=== PATIENT | female | born 1950 | race Two or more races ===

== ENCOUNTER 2021-10-04 16:28 | Inpatient (IN) | payer MEDICAID, OTHER ==
[~2021-10-04] VITALS: Ht 167.6 cm; Wt 135.7 kg
[~2021-10-04 16:28] MED LIST: ALBU6.7H9 INH; ATOR-2 PO; BUME2TAB7 PO; EZET10TA13 PO; FURO-151 MT; GABA-532 MT; LOPHC2 MT; LOSA25TA26 MT; METF-416 MT; METO25TA6 MT; MOME13HF INH; MONT-39 MT; MONT10TA21 MT; OMEP20CA14 PO; RIVA20TA MT; SPIR25TA6 PO
[2021-10-04] MEDS ORDERED: ALBUTEROL (0.083%) 2.5MG/3ML NEB HHN STA ×2 (16:59→19:12)
[2021-10-04] MEDS ORDERED: IPRATROPIUM BROMIDE (0.02%) 0.5MG/2.5ML NEB HHN STA ×2 (16:59→19:12)
[2021-10-04] MEDS ORDERED: METHYLPREDNISOLONE SOD SUCC 125 MG/2 ML VIAL IV STA (16:59)
[2021-10-04] MEDS ORDERED: MAGNESIUM 2 G PREMIX 50 ML IV ONE (17:00)
[2021-10-04] MEDS ORDERED: ASPIRIN 81MG TABLET PO ONE (17:00)
[2021-10-04 17:44] LABS: EOSINOPHILS % 4.1 % (0.0-5.0); HEMATOCRIT. 33.4 % (36.0-48.0); HEMOGLOBIN. 10.2 g/dL (12.0-16.0); MEAN CORPUSCULAR HEMOGLOBIN 25.2 pg (28.0-32.0); MEAN CORPUSCULAR VOLUME 82.5 fL (81.0-99.0); MEAN PLATELET VOLUME 8.2 fl (7.4-10.4); MONOCYTES % 10.9 % (2.0-8.0); PLATELET 294 x1000/uL (130-400); RED BLOOD CELL COUNT 4.05 mill/uL (4.2-5.4); RED CELL DISTRIBUTION WIDTH 16.1 % (11.6-14.6)
[2021-10-04 17:47] LABS: CHLORIDE 98 mEq/L (98-107)
[2021-10-04 18:19] LABS: BG BASE EXCESS 8.1 mmol/L (-2.0-2.0); BG CARBOXYHEMOGLOBIN 0.5 % (0.5-1.5); BG DEOXYHEMOGLOBIN 0.7 % (0.0-5.0); BG FRACTION INSPIRED OXYGEN 60; BG HCO3 ACT 34.5 mmol/L (22.0-26.0); BG METHEMOGLOBIN 0.4 % (0.0-1.5); BG OXYGEN SATURATION 99.3 % (92.0-98.5); BG OXYHEMOGLOBIN 98.4 % (94.0-97.0); BG PCO2 58.2 mmHg (35.0-45.0); BG PH 7.391 (7.350-7.450); BG PO2 197.3 mmHg (75.0-100.0); BG SAMPLE SITE RIGHT RADIAL; BG TOTAL HEMOGLOBIN 10.9 g/dL (12.0-18.0); BG VENT MODE MASK - HHN
[2021-10-04] MEDS ORDERED: FUROSEMIDE 40MG/4ML VIAL IVP ONE (19:00)
[2021-10-04] MEDS ORDERED: CALCIUM GLUCONATE 1GM PREMIX 50 ML IV ONE (19:00)
[2021-10-04 20:16] LABS: BG BASE EXCESS 7.9 mmol/L (-2.0-2.0); BG CARBOXYHEMOGLOBIN 0.8 % (0.5-1.5); BG DEOXYHEMOGLOBIN 2.5 % (0.0-5.0); BG FRACTION INSPIRED OXYGEN 50; BG HCO3 ACT 34.2 mmol/L (22.0-26.0); BG METHEMOGLOBIN 0.3 % (0.0-1.5); BG OXYGEN SATURATION 97.5 % (92.0-98.5); BG OXYHEMOGLOBIN 96.4 % (94.0-97.0); BG PCO2 56.5 mmHg (35.0-45.0); BG PO2 100.5 mmHg (75.0-100.0); BG SAMPLE SITE LEFT RADIAL; BG TOTAL HEMOGLOBIN 11.4 g/dL (12.0-18.0); BG TOTAL RESPIRATORY RATE 23 b/min; BG VENT MODE MASK - BIPAP
[2021-10-05] VITALS (12 sets, daily range): BP systolic 111–146; BP diastolic 50–80
[2021-10-05] MEDS ORDERED: DEXTROSE 50% WATER 50ML SYRINGE IV PRN (02:00)
[2021-10-05] MEDS ORDERED: HYDRALAZINE 20MG/ML VIAL IV PRN (02:00)
[2021-10-05] MEDS ORDERED: ONDANSETRON HCL 4MG/2ML INJ IV PRN (02:00)
[2021-10-05] MEDS ORDERED: CLONIDINE 0.1MG TABLET PO PRN (02:00)
[2021-10-05] MEDS: GABAPENTIN 300MG CAPSULE PO SCH ×3 (06:31→21:03)
[2021-10-05] MEDS: BLOOD SUGAR DIAGNOSTIC STRIP TEST SCH ×4 (06:37→21:06)
[2021-10-05 07:18] LABS: BASOPHILS % 0.2 % (0.0-2.0); HEMATOCRIT. 33.2 % (36.0-48.0); HEMOGLOBIN. 10.3 g/dL (12.0-16.0); LYMPHOCYTES % 10.7 % (20.0-50.0); MEAN CORPUSCULAR HEMOGLOBIN 25.3 pg (28.0-32.0); MEAN PLATELET VOLUME 7.7 fl (7.4-10.4); MONOCYTES % 1.2 % (2.0-8.0); NEUTROPHILS % 87.9 % (40.0-76.0); PLATELET 273 x1000/uL (130-400); RED BLOOD CELL COUNT 4.05 mill/uL (4.2-5.4); RED CELL DISTRIBUTION WIDTH 15.7 % (11.6-14.6)
[2021-10-05 07:25] LABS: CHLORIDE 98 mEq/L (98-107)
[2021-10-05] MEDS: FUROSEMIDE 100MG/10ML VIAL IVP SCH ×2 (08:43→17:07)
[2021-10-05] MEDS: METOPROLOL TARTRATE 25MG TABLET PO SCH ×2 (08:43→21:00)
[2021-10-05] MEDS: EZETIMIBE 10MG TABLET PO SCH (08:43)
[2021-10-05] MEDS: OMEPRAZOLE 20MG CAPSULE EXTENDED RELEASE PO SCH (08:43)
[2021-10-05] MEDS: LOSARTAN POTASSIUM 25 MG TABLET PO SCH (08:43)
[2021-10-05] MEDS: METFORMIN HCL 500MG TABLET PO SCH ×2 (08:44→17:07)
[2021-10-05] MEDS: INSULIN LISPRO 100 UNITS/ML SUBCUT SCH ×4 (08:47→21:06)
[2021-10-05 08:48] LABS: BG BASE EXCESS 7.3 mmol/L (-2.0-2.0); BG CARBOXYHEMOGLOBIN 0.6 % (0.5-1.5); BG DEOXYHEMOGLOBIN 3.6 % (0.0-5.0); BG FRACTION INSPIRED OXYGEN 32; BG HCO3 ACT 35.1 mmol/L (22.0-26.0); BG METHEMOGLOBIN 0.4 % (0.0-1.5); BG OXYGEN SATURATION 96.4 % (92.0-98.5); BG OXYHEMOGLOBIN 95.4 % (94.0-97.0); BG PCO2 67.3 mmHg (35.0-45.0); BG PH 7.335 (7.350-7.450); BG SAMPLE SITE RIGHT RADIAL; BG TOTAL HEMOGLOBIN 11.4 g/dL (12.0-18.0); BG VENT MODE NASAL CANNULA
[2021-10-05] MEDS: SPIRONOLACTONE 25MG TABLET PO SCH (08:51)
[2021-10-05] MEDS ORDERED: BUMETANIDE 1MG TABLET PO SCH (09:00)
[2021-10-05] MEDS ORDERED: INSULIN GLARGINE 100 UNITS/ML SUBCUT SCH (09:00)
[2021-10-05] MEDS ORDERED: FUROSEMIDE 40MG/4 ML UDC PO SCH (09:00)
[2021-10-05] MEDS: IPRATROPIUM/ALBUTEROL 0.5-3(2.5)MG/3ML NEB HHN SCH ×3 (12:12→19:47)
[2021-10-05] MEDS: MONTELUKAST SODIUM 10MG TABLET PO SCH (17:07)
[2021-10-05] MEDS: RIVAROXABAN 20 MG TABLET PO SCH (17:07)
[2021-10-05] MEDS: ATORVASTATIN CALCIUM 40MG TABLET PO SCH (21:02)
[2021-10-06] VITALS (12 sets, daily range): BP systolic 95–131; BP diastolic 32–69
[2021-10-06] MEDS: IPRATROPIUM/ALBUTEROL 0.5-3(2.5)MG/3ML NEB HHN SCH ×4 (00:42→18:00)
[2021-10-06] MEDS: GABAPENTIN 300MG CAPSULE PO SCH ×3 (06:45→21:15)
[2021-10-06] MEDS: BLOOD SUGAR DIAGNOSTIC STRIP TEST SCH ×4 (06:49→21:17)
[2021-10-06 08:13] LABS: BASOPHILS % 0.7 % (0.0-2.0); EOSINOPHILS % 0.3 % (0.0-5.0); HEMATOCRIT. 34.4 % (36.0-48.0); HEMOGLOBIN. 10.4 g/dL (12.0-16.0); LYMPHOCYTES % 17.4 % (20.0-50.0); MEAN CORPUSCULAR HEMOGLOBIN 25.3 pg (28.0-32.0); MEAN CORPUSCULAR VOLUME 83.7 fL (81.0-99.0); MEAN PLATELET VOLUME 8.2 fl (7.4-10.4); MONOCYTES % 10.9 % (2.0-8.0); NEUTROPHILS % 70.7 % (40.0-76.0); PLATELET 283 x1000/uL (130-400); RED BLOOD CELL COUNT 4.11 mill/uL (4.2-5.4); RED CELL DISTRIBUTION WIDTH 16.1 % (11.6-14.6)
[2021-10-06] MEDS: METOPROLOL TARTRATE 25MG TABLET PO SCH ×2 (08:17→21:00)
[2021-10-06] MEDS: EZETIMIBE 10MG TABLET PO SCH (08:17)
[2021-10-06] MEDS: METFORMIN HCL 500MG TABLET PO SCH ×2 (08:18→17:33)
[2021-10-06] MEDS: OMEPRAZOLE 20MG CAPSULE EXTENDED RELEASE PO SCH (08:18)
[2021-10-06] MEDS: SPIRONOLACTONE 25MG TABLET PO SCH (08:18)
[2021-10-06] MEDS: LOSARTAN POTASSIUM 25 MG TABLET PO SCH (08:18)
[2021-10-06] MEDS: FUROSEMIDE 100MG/10ML VIAL IVP SCH ×2 (08:18→17:32)
[2021-10-06] MEDS: INSULIN LISPRO 100 UNITS/ML SUBCUT SCH ×4 (08:19→21:16)
[2021-10-06 08:34] LABS: CHLORIDE 95 mEq/L (98-107)
[2021-10-06] MEDS: INSULIN GLARGINE 100 UNITS/ML SUBCUT SCH ×2 (10:21→21:16)
[2021-10-06] MEDS: MONTELUKAST SODIUM 10MG TABLET PO SCH (17:33)
[2021-10-06] MEDS: RIVAROXABAN 20 MG TABLET PO SCH (17:33)
[2021-10-06] MEDS: ATORVASTATIN CALCIUM 40MG TABLET PO SCH (21:15)
[2021-10-06] MEDS: FAMOTIDINE 20MG TABLET PO SCH (21:15)
[2021-10-07] VITALS (22 sets, daily range): BP systolic 94–138; BP diastolic 31–78
[2021-10-07] MEDS: GABAPENTIN 300MG CAPSULE PO SCH ×3 (06:47→22:00)
[2021-10-07] MEDS: BLOOD SUGAR DIAGNOSTIC STRIP TEST SCH ×4 (06:53→20:53)
[2021-10-07] MEDS: INSULIN LISPRO 100 UNITS/ML SUBCUT SCH ×4 (07:35→20:53)
[2021-10-07] MEDS: METFORMIN HCL 500MG TABLET PO SCH ×2 (08:51→18:07)
[2021-10-07] MEDS: EZETIMIBE 10MG TABLET PO SCH (08:51)
[2021-10-07] MEDS: SPIRONOLACTONE 25MG TABLET PO SCH (08:52)
[2021-10-07] MEDS: FUROSEMIDE 100MG/10ML VIAL IVP SCH ×2 (08:52→18:07)
[2021-10-07] MEDS: FAMOTIDINE 20MG TABLET PO SCH ×2 (08:53→20:41)
[2021-10-07] MEDS: IPRATROPIUM/ALBUTEROL 0.5-3(2.5)MG/3ML NEB HHN SCH ×4 (09:19→20:22)
[2021-10-07] MEDS: METOPROLOL TARTRATE 25MG TABLET PO SCH ×2 (11:17→20:42)
[2021-10-07] MEDS: LOSARTAN POTASSIUM 25 MG TABLET PO SCH (11:18)
[2021-10-07] MEDS: INSULIN GLARGINE 100 UNITS/ML SUBCUT SCH ×2 (11:24→20:59)
[2021-10-07 14:24] LABS: CLARITY URINE CLOUDY (CLEAR); COLOR URINE YELLOW (YELLOW); KETONES URINE NEGATIVE (NEGATIVE); LEUKOCYTE ESTERASE URINE TRACE (NEGATIVE); NITRITE URINE NEGATIVE (NEGATIVE); OCCULT BLOOD URINE 3+ (NEGATIVE); PROTEIN URINE NEGATIVE (NEGATIVE); SPECIFIC GRAVITY URINE 1.009 (1.005-1.030)
[2021-10-07] MEDS ORDERED: CEFTRIAXONE 1 G PREMIX 50 ML IV SCH (15:45)
[2021-10-07] MEDS: CEFTRIAXONE 1,000 MG in DEXTROSE 5% WATER 50 ML IV SCH (17:22)
[2021-10-07] MEDS: RIVAROXABAN 20 MG TABLET PO SCH (18:09)
[2021-10-07] MEDS: MONTELUKAST SODIUM 10MG TABLET PO SCH (18:09)
[2021-10-07] MEDS: ATORVASTATIN CALCIUM 40MG TABLET PO SCH (20:41)
[2021-10-08] VITALS (16 sets, daily range): BP systolic 92–137; BP diastolic 40–84
[2021-10-08] MEDS: IPRATROPIUM/ALBUTEROL 0.5-3(2.5)MG/3ML NEB HHN SCH ×4 (00:55→20:11)
[2021-10-08] MEDS: BLOOD SUGAR DIAGNOSTIC STRIP TEST SCH ×4 (05:57→21:16)
[2021-10-08] MEDS: GABAPENTIN 300MG CAPSULE PO SCH ×3 (05:59→21:38)
[2021-10-08 08:41] LABS: BASOPHILS % 1.3 % (0.0-2.0); EOSINOPHILS % 1.2 % (0.0-5.0); HEMATOCRIT. 31.8 % (36.0-48.0); HEMOGLOBIN. 9.5 g/dL (12.0-16.0); LYMPHOCYTES % 16.3 % (20.0-50.0); MEAN CORPUSCULAR HEMOGLOBIN 25.2 pg (28.0-32.0); MEAN CORPUSCULAR VOLUME 84.8 fL (81.0-99.0); MEAN PLATELET VOLUME 8.6 fl (7.4-10.4); MONOCYTES % 10.9 % (2.0-8.0); NEUTROPHILS % 70.3 % (40.0-76.0); PLATELET 287 x1000/uL (130-400); RED BLOOD CELL COUNT 3.75 mill/uL (4.2-5.4); RED CELL DISTRIBUTION WIDTH 16.4 % (11.6-14.6)
[2021-10-08] MEDS: FAMOTIDINE 20MG TABLET PO SCH ×2 (09:40→21:23)
[2021-10-08] MEDS: FUROSEMIDE 100MG/10ML VIAL IVP SCH ×2 (09:40→17:43)
[2021-10-08] MEDS: LOSARTAN POTASSIUM 25 MG TABLET PO SCH (09:40)
[2021-10-08] MEDS: EZETIMIBE 10MG TABLET PO SCH (09:41)
[2021-10-08] MEDS: SPIRONOLACTONE 25MG TABLET PO SCH (09:41)
[2021-10-08] MEDS: METOPROLOL TARTRATE 25MG TABLET PO SCH ×2 (09:42→21:29)
[2021-10-08] MEDS: INSULIN LISPRO 100 UNITS/ML SUBCUT SCH ×4 (09:45→21:22)
[2021-10-08] MEDS: INSULIN GLARGINE 100 UNITS/ML SUBCUT SCH ×2 (09:46→21:22)
[2021-10-08] MEDS: METFORMIN HCL 500MG TABLET PO SCH ×2 (09:51→17:43)
[2021-10-08] MEDS: ACETAMINOPHEN 325MG TABLET PO PRN (09:51)
[2021-10-08] MEDS: CEFTRIAXONE 1,000 MG in DEXTROSE 5% WATER 50 ML IV SCH (17:42)
[2021-10-08] MEDS: MONTELUKAST SODIUM 10MG TABLET PO SCH (17:43)
[2021-10-08] MEDS: RIVAROXABAN 20 MG TABLET PO SCH (17:44)
[2021-10-08] MEDS: ATORVASTATIN CALCIUM 40MG TABLET PO SCH (21:18)
[2021-10-09] VITALS (13 sets, daily range): BP systolic 103–140; BP diastolic 48–72
[2021-10-09] MEDS: IPRATROPIUM/ALBUTEROL 0.5-3(2.5)MG/3ML NEB HHN SCH ×4 (01:43→20:25)
[2021-10-09] MEDS: INSULIN LISPRO 100 UNITS/ML SUBCUT SCH ×4 (08:00→21:32)
[2021-10-09] MEDS: BLOOD SUGAR DIAGNOSTIC STRIP TEST SCH ×4 (08:08→21:32)
[2021-10-09] MEDS: METFORMIN HCL 500MG TABLET PO SCH ×2 (08:15→18:57)
[2021-10-09] MEDS: GABAPENTIN 300MG CAPSULE PO SCH ×3 (08:15→21:30)
[2021-10-09] MEDS: EZETIMIBE 10MG TABLET PO SCH (09:25)
[2021-10-09] MEDS: SPIRONOLACTONE 25MG TABLET PO SCH (09:25)
[2021-10-09] MEDS: FUROSEMIDE 100MG/10ML VIAL IVP SCH ×2 (09:26→18:01)
[2021-10-09] MEDS: LOSARTAN POTASSIUM 25 MG TABLET PO SCH (09:35)
[2021-10-09 09:46] LABS: CHLORIDE 96 mEq/L (98-107)
[2021-10-09] MEDS: FAMOTIDINE 20MG TABLET PO SCH ×2 (09:54→21:29)
[2021-10-09] MEDS: METOPROLOL TARTRATE 25MG TABLET PO SCH ×2 (09:55→21:00)
[2021-10-09] MEDS: INSULIN GLARGINE 100 UNITS/ML SUBCUT SCH ×2 (09:57→21:31)
[2021-10-09 10:10] LABS: BASOPHILS % 0.8 % (0.0-2.0); EOSINOPHILS % 2.4 % (0.0-5.0); HEMOGLOBIN. 9.7 g/dL (12.0-16.0); LYMPHOCYTES % 15.4 % (20.0-50.0); MEAN CORPUSCULAR HEMOGLOBIN 25.4 pg (28.0-32.0); MEAN CORPUSCULAR VOLUME 83.8 fL (81.0-99.0); MEAN PLATELET VOLUME 8.4 fl (7.4-10.4); MONOCYTES % 12.5 % (2.0-8.0); NEUTROPHILS % 68.9 % (40.0-76.0); PLATELET 251 x1000/uL (130-400); RED BLOOD CELL COUNT 3.82 mill/uL (4.2-5.4)
[2021-10-09 12:16] LABS: BG BASE EXCESS 9.2 mmol/L (-2.0-2.0); BG CARBOXYHEMOGLOBIN 0.8 % (0.5-1.5); BG DEOXYHEMOGLOBIN 24.6 % (0.0-5.0); BG FRACTION INSPIRED OXYGEN 21; BG HCO3 ACT 37.8 mmol/L (22.0-26.0); BG METHEMOGLOBIN 0.2 % (0.0-1.5); BG OXYGEN SATURATION 75.2 % (92.0-98.5); BG OXYHEMOGLOBIN 74.4 % (94.0-97.0); BG PCO2 74.1 mmHg (35.0-45.0); BG PH 7.325 (7.350-7.450); BG PO2 42.4 mmHg (75.0-100.0); BG SAMPLE SITE RIGHT RADIAL; BG VENT MODE ROOM AIR
[2021-10-09] MEDS: LACTULOSE 20G/30ML UDC PO SCH ×2 (13:56→21:30)
[2021-10-09] MEDS: MONTELUKAST SODIUM 10MG TABLET PO SCH (18:00)
[2021-10-09] MEDS: CEFTRIAXONE 1,000 MG in DEXTROSE 5% WATER 50 ML IV SCH (18:00)
[2021-10-09] MEDS: RIVAROXABAN 20 MG TABLET PO SCH (18:01)
[2021-10-09] MEDS: ATORVASTATIN CALCIUM 40MG TABLET PO SCH (21:30)
[2021-10-09] MEDS: ACETAMINOPHEN 325MG TABLET PO PRN (21:39)
[2021-10-10] VITALS (11 sets, daily range): BP systolic 98–112; BP diastolic 40–88
[2021-10-10] MEDS: IPRATROPIUM/ALBUTEROL 0.5-3(2.5)MG/3ML NEB HHN SCH ×4 (00:50→21:15)
[2021-10-10] MEDS: GABAPENTIN 300MG CAPSULE PO SCH ×3 (06:24→21:23)
[2021-10-10] MEDS: LACTULOSE 20G/30ML UDC PO SCH ×3 (06:24→21:20)
[2021-10-10] MEDS: BLOOD SUGAR DIAGNOSTIC STRIP TEST SCH ×4 (07:30→21:27)
[2021-10-10 07:59] LABS: BG CARBOXYHEMOGLOBIN 1.1 % (0.5-1.5); BG DEOXYHEMOGLOBIN 3.2 % (0.0-5.0); BG HCO3 ACT 37.2 mmol/L (22.0-26.0); BG METHEMOGLOBIN 0.9 % (0.0-1.5); BG OXYGEN SATURATION 96.7 % (92.0-98.5); BG OXYHEMOGLOBIN 94.8 % (94.0-97.0); BG PCO2 73.6 mmHg (35.0-45.0); BG PH 7.321 (7.350-7.450); BG PO2 94.6 mmHg (75.0-100.0); BG SAMPLE SITE RIGHT RADIAL; BG TOTAL HEMOGLOBIN 10.7 g/dL (12.0-18.0); BG VENT MODE NASAL CANNULA
[2021-10-10] MEDS: INSULIN LISPRO 100 UNITS/ML SUBCUT SCH ×4 (08:00→21:00)
[2021-10-10] MEDS: METFORMIN HCL 500MG TABLET PO SCH ×2 (08:58→17:59)
[2021-10-10] MEDS: FAMOTIDINE 20MG TABLET PO SCH ×2 (08:59→21:23)
[2021-10-10] MEDS: EZETIMIBE 10MG TABLET PO SCH (08:59)
[2021-10-10] MEDS: FUROSEMIDE 100MG/10ML VIAL IVP SCH ×2 (08:59→17:00)
[2021-10-10] MEDS: LOSARTAN POTASSIUM 25 MG TABLET PO SCH (09:00)
[2021-10-10] MEDS: METOPROLOL TARTRATE 25MG TABLET PO SCH ×2 (09:00→21:00)
[2021-10-10] MEDS: SPIRONOLACTONE 25MG TABLET PO SCH (09:10)
[2021-10-10] MEDS: INSULIN GLARGINE 100 UNITS/ML SUBCUT SCH ×2 (10:42→21:26)
[2021-10-10] MEDS: ACETAMINOPHEN 325MG TABLET PO PRN ×2 (12:43→21:22)
[2021-10-10] MEDS ORDERED: NA PHOS,M-B/NA PHOS,DI-BA ENEMA 118ML PR NR (14:00)
[2021-10-10] MEDS: MONTELUKAST SODIUM 10MG TABLET PO SCH (16:59)
[2021-10-10] MEDS: RIVAROXABAN 20 MG TABLET PO SCH (16:59)
[2021-10-10] MEDS ORDERED: SORBITOL 70% SOLN 30ML PO NR (17:00)
[2021-10-10] MEDS: CEFTRIAXONE 1,000 MG in DEXTROSE 5% WATER 50 ML IV SCH (17:29)
[2021-10-10] MEDS: ATORVASTATIN CALCIUM 40MG TABLET PO SCH (21:23)
[2021-10-11] VITALS (12 sets, daily range): BP systolic 94–126; BP diastolic 52–86
[2021-10-11] MEDS: IPRATROPIUM/ALBUTEROL 0.5-3(2.5)MG/3ML NEB HHN SCH ×4 (01:51→20:52)
[2021-10-11] MEDS: LACTULOSE 20G/30ML UDC PO SCH ×2 (06:25→14:19)
[2021-10-11] MEDS: GABAPENTIN 300MG CAPSULE PO SCH ×2 (06:25→14:19)
[2021-10-11] MEDS: BLOOD SUGAR DIAGNOSTIC STRIP TEST SCH ×4 (06:31→20:56)
[2021-10-11] MEDS: INSULIN LISPRO 100 UNITS/ML SUBCUT SCH ×4 (07:45→20:29)
[2021-10-11] MEDS: LOSARTAN POTASSIUM 25 MG TABLET PO SCH (08:12)
[2021-10-11] MEDS: EZETIMIBE 10MG TABLET PO SCH (08:13)
[2021-10-11] MEDS: METFORMIN HCL 500MG TABLET PO SCH ×2 (08:13→18:07)
[2021-10-11] MEDS: METOPROLOL TARTRATE 25MG TABLET PO SCH ×2 (08:13→20:27)
[2021-10-11] MEDS: SPIRONOLACTONE 25MG TABLET PO SCH (08:13)
[2021-10-11] MEDS: FUROSEMIDE 100MG/10ML VIAL IVP SCH ×2 (08:13→17:06)
[2021-10-11] MEDS ORDERED: BUME2TAB7 PO (09:37)
[2021-10-11] MEDS ORDERED: ALBU6.7H9 INH (09:37)
[2021-10-11] MEDS ORDERED: MOME13HF INH (09:37)
[2021-10-11] MEDS: INSULIN GLARGINE 100 UNITS/ML SUBCUT SCH (11:04)
[2021-10-11] MEDS: FAMOTIDINE 20MG TABLET PO SCH ×2 (11:05→20:29)
[2021-10-11] MEDS: MONTELUKAST SODIUM 10MG TABLET PO SCH (17:06)
[2021-10-11] MEDS: RIVAROXABAN 20 MG TABLET PO SCH (17:06)
[2021-10-11] MEDS: CEFTRIAXONE 1,000 MG in DEXTROSE 5% WATER 50 ML IV SCH (17:06)
[2021-10-11] MEDS: ATORVASTATIN CALCIUM 40MG TABLET PO SCH (20:28)
== END 2021-10-11 22:55 | disposition home health service (06) | DRG 194 ==
LOC: ER 16:28 → 5EST 21:46 → ENRESERV 23:53
PROVIDERS: ADMIT Internal Medicine; ATTEND Internal Medicine
PROC: 5A09357 Assistance with Respiratory Ventilation, Less than 24 Consecutive Hours, Continuous Positive Airway Pressure (ICD-10-PCS; principal; 2021-10-04)
PROC: 5A09357 Assistance with Respiratory Ventilation, Less than 24 Consecutive Hours, Continuous Positive Airway Pressure (ICD-10-PCS; 2021-10-05)
PROC: 5A09357 Assistance with Respiratory Ventilation, Less than 24 Consecutive Hours, Continuous Positive Airway Pressure (ICD-10-PCS; 2021-10-07)
PROC: 5A09357 Assistance with Respiratory Ventilation, Less than 24 Consecutive Hours, Continuous Positive Airway Pressure (ICD-10-PCS; 2021-10-08)
PROC: 5A09357 Assistance with Respiratory Ventilation, Less than 24 Consecutive Hours, Continuous Positive Airway Pressure (ICD-10-PCS; 2021-10-09)
DX: I11.0 Hypertensive heart disease with heart failure (principal); J96.01 Acute respiratory failure with hypoxia; E44.1 Mild protein-calorie malnutrition; E72.20 Disorder of urea cycle metabolism, unspecified; I27.29 Other secondary pulmonary hypertension; E87.1 Hypo-osmolality and hyponatremia; D64.9 Anemia, unspecified; E11.9 Type 2 diabetes mellitus without complications; J44.1 Chronic obstructive pulmonary disease with (acute) exacerbation; I50.43 Acute on chronic combined systolic (congestive) and diastolic (congestive) heart failure; E78.00 Pure hypercholesterolemia, unspecified; I48.91 Unspecified atrial fibrillation; I25.10 Atherosclerotic heart disease of native coronary artery without angina pectoris; E66.01 Morbid (severe) obesity due to excess calories; E87.5 Hyperkalemia; Z20.822 Contact with and (suspected) exposure to COVID-19; I48.20 Chronic atrial fibrillation, unspecified; R74.01 Elevation of levels of liver transaminase levels; G47.33 Obstructive sleep apnea (adult) (pediatric); Z90.710 Acquired absence of both cervix and uterus; Z79.01 Long term (current) use of anticoagulants; Z88.0 Allergy status to penicillin; Z79.899 Other long term (current) drug therapy; Z79.84 Long term (current) use of oral hypoglycemic drugs; Z68.42 Body mass index [BMI] 45.0-49.9, adult
CPT/HCPCS: 36415; 36600; 71045; 76705; 80048; 80053; 81003; 82140; 82375; 82805; 82962; 83036; 83880; 84443; 84484; 85025; 87077; 87186; 87426; 87804; 93005; 93306; 93970; 94003; 94640; 94660; 97110; 97162; 97166; 97530; 99291; J0610; J0696; J1815; J1940; J2405; J2930; J3475; J7060; U0003; U0005

== ENCOUNTER 2021-10-12 20:32 | Emergency (ER) | payer OTHER ==
[~2021-10-12] VITALS: Ht 157.5 cm; Wt 136.0 kg
[~2021-10-12 20:32] MED LIST changes: -FURO-151 MT
[2021-10-12 23:14] LABS: BASOPHILS % 1.3 % (0.0-2.0); EOSINOPHILS % 5.2 % (0.0-5.0); HEMATOCRIT. 32.4 % (36.0-48.0); LYMPHOCYTES % 21.2 % (20.0-50.0); MEAN CORPUSCULAR HEMOGLOBIN 25.4 pg (28.0-32.0); MEAN CORPUSCULAR VOLUME 82.3 fL (81.0-99.0); MEAN PLATELET VOLUME 8.3 fl (7.4-10.4); MONOCYTES % 14.9 % (2.0-8.0); NEUTROPHILS % 57.4 % (40.0-76.0); PLATELET 198 x1000/uL (130-400); RED BLOOD CELL COUNT 3.93 mill/uL (4.2-5.4); RED CELL DISTRIBUTION WIDTH 16.3 % (11.6-14.6)
[2021-10-12 23:19] LABS: CHLORIDE 95 mEq/L (98-107)
[2021-10-12] MEDS ORDERED: BUMETANIDE 1MG/4ML VIAL IV SCH (23:45)
[2021-10-13 01:52] LABS: CLARITY URINE CLEAR (CLEAR); COLOR URINE YELLOW (YELLOW); KETONES URINE NEGATIVE (NEGATIVE); LEUKOCYTE ESTERASE URINE 1+ (NEGATIVE); NITRITE URINE NEGATIVE (NEGATIVE); OCCULT BLOOD URINE 3+ (NEGATIVE); PROTEIN URINE TRACE (NEGATIVE); SPECIFIC GRAVITY URINE 1.011 (1.005-1.030)
[2021-10-13 07:42] VITALS: BP 124/52
== END 2021-10-13 08:38 | disposition short-term general hospital (02) ==
LOC: ER 20:32
DX: I11.0 Hypertensive heart disease with heart failure (principal); I50.9 Heart failure, unspecified; R09.02 Hypoxemia; I48.91 Unspecified atrial fibrillation; D64.9 Anemia, unspecified; I25.10 Atherosclerotic heart disease of native coronary artery without angina pectoris; J44.9 Chronic obstructive pulmonary disease, unspecified; E11.9 Type 2 diabetes mellitus without complications; E78.00 Pure hypercholesterolemia, unspecified; Z90.710 Acquired absence of both cervix and uterus
CPT/HCPCS: 36415; 71045; 80053; 81003; 83880; 84484; 85025; 93005; 96374; 99285; J3490